=== PATIENT | female | born 1950 | race Caucasian/White ===

== ENCOUNTER → 2019-03-31 | Outpatient (CLI) | payer OTHER ==
--- NOTE | 2019-03-31 12:08 | 2DMMODE ---
[place] [address] 2 D/M-MODE ECHOCARDIOGRAM Name: NADIA BREEN Room: [facility]#: [id number] Admission: 03/31/19 Attend Phys: Manasa Harrington, Discharge: Date of : 46 Date of Service: 03/31/19 1208 Report #: [id number] THIS REPORT FOR: //name// APPROVED REPORT Study performed: 03/31/2019 08:34:49 EXAM: Comprehensive 2D, Doppler, and color-flow Echocardiogram Patient Location: Out-Patient BSA: 1.60 HR: 83 bpm BP: 142/78 mmHg Other Information Study Quality: Good Indications Syncope 2D Dimensions IVSd: 10.88 (7-11mm) LVOT Diam: 20.01 (18-24mm) LVDd: 42.27 mm PWd: 9.92 (7-11mm) Ascending Ao: 33.99 (22-36mm) LVDs: 33.07 (25-40mm) Aortic Root: 27.73 mm Volumes Left Atrial Volume (Systole) LA ESV Index: 15.60 mL/m2 Aortic Valve AoV Peak Austin.: 1.36 m/s AO Peak Gr.: 7.36 mmHg LVOT Max P.66 mmHg AO Mean Gr.: 4.19 mmHg LVOT Mean P.55 mmHg LVOT Max V: 1.38 m/s AO V2 VTI: 25.57 cm LVOT Mean V: 0.85 m/s LOBITO (VTI): 3.56 cm2 LVOT V1 VTI: 28.95 cm AI M[place]i: 2.89 m/s2 AI PHT: 446.74 ms Mitral Valve E/A Ratio: 0.71 MV Decel. Time: 213.41 ms MV E Max Austin.: 0.67 m/[place] [address] 2 D/M-MODE ECHOCARDIOGRAM Name: NADIA BREEN Room: [facility]#: [id number] Admission: 03/31/19 Attend Phys: Manasa Harrington, Discharge: Date of : 46 Date of Service: 03/31/19 1208 Report #: [id number] MV PHT: 61.89 ms MVA (PHT): 3.55 cm2 TDI E/Lateral E': 8.38 E/Medial E': 9.57 Medial E' Austin.: 0.07 m/s Lateral E' Austin.: 0.08 m/s Pulmonary Valve PV Peak Austin.: 0.88 m/s PV Peak Gr.: 3.08 mmHg Tricuspid Valve RAP Estimate: 5.00 mmHg TR Peak Gr.: 25.27 mmHg RVSP: 30.27 mmHg PA Pressure: 30.27 mmHg Left Ventricle The left ventricle is normal size. There is normal LV segmental wall motion. There is normal left ventricular wall thickness. Left ventricular systolic function is normal. LVEF is 55-60%. Grade I - abnormal relaxation pattern. Right Ventricle The right ventricle is normal size. The right ventricular systolic function is normal. Atria The left atrium size is normal. The right atrium size is normal. Aortic Valve The aortic valve is normal in structure. Mild aortic regurgitation. There is no aortic valvular stenosis. Mitral Valve The mitral valve is normal in structure. Mild mitral regurgitation. No evidence of mitral valve stenosis. Tricuspid Valve The tricuspid valve is normal in structure. Mild tricuspid regurgitation. The RVSP is 30-35 mmHg. Pulmonic Valve The pulmonary valve is normal in structure. There is no pulmonic [place] [address] 2 D/M-MODE ECHOCARDIOGRAM Name: NADIA BREEN El Room: [facility]#: [id number] Admission: 03/31/19 Attend Phys: Manasa Harrington, Discharge: Date of : 46 Date of Service: 03/31/19 1208 Report #: [id number] Great Vessels The aortic root is normal in size. IVC is normal in size and collapses >50% with inspiration. Pericardium There is no pericardial effusion. <Conclusion> The left ventricle is normal size. There is normal left ventricular wall thickness. Left ventricular systolic function is normal. LVEF is 55-60%. Grade I - abnormal relaxation pattern. There is normal LV segmental wall motion. Mild aortic regurgitation. Mild mitral regurgitation. Mild tricuspid regurgitation. The RVSP is 30-35 mmHg. IVC is normal in size and collapses >50% with inspiration. <ELECTRONICALLY SIGNED> By: Nain Lyn MD, FACC 03/31/198 07 07 Nain Lyn MD, FACC /INF
== END ==
LOC: M.MRI 03-26 14:06
DX: I08.3 Combined rheumatic disorders of mitral, aortic and tricuspid valves (principal)